=== PATIENT | female | born 1990 | race Asian ===

== ENCOUNTER 2017-05-08 12:16 | Emergency (ER) | payer BC ==
[2017-05-08 12:30] VITALS: BP 146/117
--- NOTE | 2017-05-08 12:47 | EDM.PDOC ---
ED HPI GENERAL MEDICAL PROBLEM - General Chief Complaint: ENT Problem Stated Complaint: POSSIBLE BROKEN NOSE Time Seen by Provider: 05/08/17 12:37 Source of Information: Reports: Patient History Limitations: Reports: No Limitations - History of Present Illness INITIAL COMMENTS - FREE TEXT/NARRATIVE: HISTORY AND PHYSICAL: History of present illness: [Patient comes to the emergency room complaining of nose pain. She was lifting a heavy metal lawn chair when she misjudged the weight of the chair, hitting herself in the nose. She's complaining of pain to the bridge of her nose and bleeding from her right nare. Denies any other illness or injury. Her is at the bed side. Review of systems: As per history of present illness and below otherwise all systems reviewed and negative. Past medical history: As per history of present illness and as reviewed below otherwise noncontributory. Surgical history: As per history of present illness and as reviewed below otherwise noncontributory. Social history: No reported history of drug or alcohol abuse. Family history: As per history of present illness and as reviewed below otherwise noncontributory. Physical exam: HEENT: Atraumatic, normocephalic. TMs are pearly vasquez. No hemotympanum. No facial bruising or swelling other than across the bridge of her nose. Dry crusted blood is present in right nare, none in the left. PERRLA. Lungs: Clear to auscultation, breath sounds equal bilaterally. Heart: S1S2, regular rate and rhythm. Neuro: Awake, alert, oriented. Motor and sensory unremarkable throughout. Exam nonfocal. Impression: [Nasal trauma, likely fracture] Plan: [Offered head CT to evaluate nasal bones, discussed that those findings would not alter treatment plan today. Recommend she apply ice, take Tylenol or ibuprofen as needed for discomfort and follow-up with the ear nose and throat doctor in the next several days. Referral information is given. They decided not to pursue any radiology studies and will follow up with ENT later. All their questions are answered and concerns are addressed.] Definitive disposition and diagnosis as appropriate pending reevaluation and review of above. Nose Pain Score (Numeric/FACES): 5 - Related Data Allergies Allergy/AdvReac Type Severity Reaction Status Date / Time No Known Allergies Allergy Verified 05/08/17 12:26 Home Meds: Home Meds . [No Known Home Meds] 11/17/14 [History] Past Medical History - Past Health History Medical/Surgical History: Denies Medical/Surgical History - Infectious Disease History Infectious Disease History: Reports: Chicken Pox Social & Family History - Tobacco Use Smoking Status *Q: Never Smoker - Caffeine Use Caffeine Use: Reports: None - Alcohol Use Days Per Week of Alcohol Use: 0 - Recreational Drug Use Recreational Drug Use: No ED ROS ENT - Review of Systems Review Of Systems: ROS reveals no pertinent complaints other than HPI. ED EXAM, ENT - Physical Exam Exam: See Below Course - Vital Signs Last Recorded V/S: Last Vital Signs Temp 97.9 F 05/08/17 12:22 Pulse 97 05/08/17 12:22 Resp 18 05/08/17 12:22 BP 146/117 H 05/08/17 12:22 Pulse Ox 99 05/08/17 12:22 Departure - Departure Time of Disposition: 13:30 Disposition: Home, Self-Care 01 Condition: Good Clinical Impression: Nasal injury Qualifiers: Encounter type: initial encounter Qualified Code(s): S09.92XA - Unspecified injury of nose, initial encounter - Discharge Information Instructions: Nosebleed, [id number] Referrals: PCP,Unknown [Primary Care Provider] - Forms: ED Department Discharge Additional Instructions: The following information is given to patients seen in the emergency department who are being discharged to home. This information is to outline your options for follow-up care. We provide all patients seen in our emergency department with a follow-up referral. The need for follow-up, as well as the timing and circumstances, are variable depending upon the specifics of your emergency department visit. If you don't have a primary care physician on staff, we will provide you with a referral. We always advise you to contact your personal physician following an emergency department visit to inform them of the circumstance of the visit and for follow-up with them and/or the need for any referrals to a consulting specialist. The emergency department will also refer you to a specialist when appropriate. This referral assures that you have the opportunity for follow-up care with a specialist. All of these measure are taken in an effort to provide you with optimal care, which includes your follow-up. Under all circumstances we always encourage you to contact your private physician who remains a resource for coordinating your care. When calling for follow-up care, please make the office aware that this follow-up is from your recent emergency room visit. If for any reason you are refused follow-up, please contact the [facility] emergency department at and asked to speak to the emergency department charge nurse. [facility] Special[facility]- ENT [address] [place] [id number] Call the above listed clinic and tell them they you were evaluated in the emergency room for a nasal injury. Follow-up there in the next week. Tylenol or ibuprofen as needed for discomfort. Apply ice pack to the bridge of her nose to reduce swelling. Return to ER as needed as discussed.
== END 2017-05-08 13:48 | disposition home or self-care (01) ==
LOC: MW.ED 12:16
DX: S09.92XA Unspecified injury of nose, initial encounter (principal); W22.8XXA Striking against or struck by other objects, initial encounter
CPT/HCPCS: 99282